=== PATIENT | male | born 1995 | race African-American/Black ===

== ENCOUNTER 2018-11-19 02:00 | Emergency (ER) | payer MEDICAID ==
[2018-11-19] MEDS ORDERED: Ketorolac 60 MG/2 ML SDV IM ONE (02:42)
--- NOTE | 2018-11-19 02:46 | EDM.PDOC ---
ED HPI GENERAL MEDICAL PROBLEM - General Chief Complaint: General Stated Complaint: JAW PAIN Time Seen by Provider: 11/19/18 02:30 Source of Information: Reports: Patient History Limitations: Reports: No Limitations - History of Present Illness INITIAL COMMENTS - FREE TEXT/NARRATIVE: 23-year-old male who had a previous jaw fracture and surgery, had no symptoms until he woke in the middle of the night with intense left jaw pain. He wasn't able to open his mouth, and the pain was intense near the left temporomandibular joint. He tried to move his jaw and pushed inwards on the angle of the jaw and heard a pop, and now the area is swollen. He still has difficulty opening his mouth and talking. No fevers or chills, no sore throat. Onset: Unknown/Unsure Duration: Hour(s): (Woke within the last 2 hours with the pain) Location: Reports: Face jaw Pain Score (Numeric/FACES): 8 - Related Data Allergies Allergy/AdvReac Type Severity Reaction Status Date / Time No Known Allergies Allergy Verified 11/19/18 02:26 Home Meds: Home Meds NK [No Known Home Meds] 11/19/18 [History] Past Medical History Musculoskeletal History: Reports: Fracture, Other (See Below) Other Musculoskeletal History: hand - Past Surgical History HEENT Surgical History: Reports: Tonsillectomy, Other (See Below) Other HEENT Surgeries/Procedures: wisdom teeeth Musculoskeletal Surgical History: Reports: Other (See Below) Other Musculoskeletal Surgeries/Procedures:: jaw surgery was wired. Social & Family History - Tobacco Use Smoking Status *Q: Never Smoker - Caffeine Use Caffeine Use: Reports: Soda - Recreational Drug Use Recreational Drug Use: No ED ROS GENERAL - Review of Systems Review Of Systems: See Below Constitutional: Denies: Fever Respiratory: Denies: Shortness of Breath, Cough Cardiovascular: Denies: Chest Pain GI/Abdominal: Denies: Nausea, Vomiting Skin: Denies: Rash, Erythema ED EXAM, GENERAL - Physical Exam Exam: See Below Exam Limited By: No Limitations General Appearance: Alert, No Apparent Distress (Looks uncomfortable but not distressed) Eye Exam: Bilateral Eye: EOMI Throat/Mouth: Other (Patient does have tenderness and swelling over the left TMJ , and pain with opening of the mouth) Respiratory/Chest: No Respiratory Distress Course - Vital Signs Last Recorded V/S: Last Vital Signs Temp 96.1 F 11/19/18 02:24 Pulse 64 11/19/18 02:24 Resp 12 11/19/18 02:24 BP 144/79 H 11/19/18 02:24 Pulse Ox 98 11/19/18 02:24 - Orders/Labs/Meds Meds: Medications Discontinued Medications Generic Name Dose Route Start Last Admin Trade Name Hanna PRN Reason Stop Dose Admin Ketorolac Tromethamine 60 mg 11/19/18 02:42 11/19/18 02:47 Toradol IM 11/19/18 02:43 60 mg ONETIME ONE Administration - Re-Assessments/Exams Free Text/Narrative Re-Assessment/Exam: 11/19/18 02:46 Patient was given 60 mg of IM Toradol, and a maxillofacial CT was done without contrast. 11/19/18 04:23 CT showed no dislocation. There was a linear lucency in the left mandible likely a vascular channel without history of trauma. Copies of the CT were made for the patient and they were sent to [facility] and he can recheck with ENT later this week if pain is not improving. Departure - Departure Time of Disposition: 04:20 Disposition: Home, Self-Care 01 Condition: Good Clinical Impression: Jaw pain - Discharge Information Instructions: Temporomandibular Joint Syndrome Referrals: PCP,None [Primary Care Provider] - Forms: ED Department Discharge Care Plan Goals: Continue with ibuprofen or naproxen for the next couple days and recheck with your maxillofacial surgeon in the next few days if you do not feel you are improving satisfactorily.
--- NOTE | 2018-11-19 04:15 | CRLCT ---
INDICATION: Left jaw swelling TECHNIQUE: CT maxillofacial without contrast. COMPARISON: None FINDINGS: Facial bones: Plate and screw fixation in the right parasymphyseal region of the mandible. A fracture line in this region is still visualized. No hardware complication. There is also a linear lucency in the left mandibular ramus image 17 series 6 and image 54 series 5. Remainder of the osseous structures are intact. Orbits and globes: Unremarkable. Sinuses: No acute or significant findings. Soft tissues: Unremarkable. IMPRESSION: Subacute fracture of the right parasymphyseal mandible with plate and screw hardware in place. Linear lucency in the left mandibular ramus. Differential considerations include a minimally displaced fracture versus a vascular channel. Correlate with focal pain or tenderness in this region. Please note that all CT scans at this facility use dose modulation, iterative reconstruction, and/or weight-based dosing when appropriate to reduce radiation dose to as low as reasonably achievable. Dictated by Tarsha Gupta MD @ Nov 19 2018 4:01AM Signed by Dr. Tarsha Gupta @ Nov 19 2018 4:13AM
== END 2018-11-19 04:37 | disposition home or self-care (01) ==
LOC: JP.ED 02:00
DX: R68.84 Jaw pain (principal)
CPT/HCPCS: 70486; 96372; 99283; J1885

== ENCOUNTER 2019-02-02 18:16 | Emergency (ER) | payer MEDICAID ==
--- NOTE | 2019-02-02 18:59 | EDM.PDOC ---
ED HPI GENERAL MEDICAL PROBLEM - General Chief Complaint: Lower Extremity Injury/Pain Stated Complaint: TWISTED ANKLE Time Seen by Provider: 02/02/19 18:55 Source of Information: Reports: Patient History Limitations: Reports: No Limitations - History of Present Illness INITIAL COMMENTS - FREE TEXT/NARRATIVE: PT TWISTED LEFT ANKLE AT WORK TODAY.hE HAS A INFECTION ON HIS GREAT TOE WHICH IS OPEN. hE THINKS IT IS FUNGAL BUT THESE LESIONS DO NOT LOOK TYPICAL. Onset: Today, Sudden Duration: Hour(s):, Other (PT TWISTED HIS ANKLE BUT THE TOE INFECTION HAS BEEN GOING ON FOR SEVERAL DAYS. ) Location: Reports: Lower Extremity, Left Left Foot Pain Score (Numeric/FACES): 7 - Related Data Allergies Allergy/AdvReac Type Severity Reaction Status Date / Time No Known Allergies Allergy Verified 02/02/19 18:32 Home Meds: Home Meds NK [No Known Home Meds] 11/19/18 [History] Past Medical History Musculoskeletal History: Reports: Fracture, Other (See Below) Other Musculoskeletal History: hand - Past Surgical History HEENT Surgical History: Reports: Tonsillectomy, Other (See Below) Other HEENT Surgeries/Procedures: wisdom teeeth Musculoskeletal Surgical History: Reports: Other (See Below) Other Musculoskeletal Surgeries/Procedures:: jaw surgery was wired. Social & Family History - Caffeine Use Caffeine Use: Reports: Soda - Recreational Drug Use Recreational Drug Use: No Review of Systems - Review of Systems Review Of Systems: See Below Constitutional: Reports: No Symptoms Eyes: Reports: No Symptoms Ears: Reports: No Symptoms Nose: Reports: No Symptoms Mouth/Throat: Reports: No Symptoms Respiratory: Reports: No Symptoms Cardiovascular: Reports: No Symptoms GI/Abdominal: Reports: No Symptoms Musculoskeletal: Reports: Other (LEFT ANKLE IS MILDLY SWOLLEN . hE HAS A LESION ON HIS LEFT GREAT TOE THAT HAS BEEN THERE FOR AWHILE. ) Neurological: Reports: No Symptoms Psychiatric: Reports: No Symptoms ED EXAM, GENERAL - Physical Exam Exam: See Below Free Text/Narrative:: pt has a lesion on his left great toe that is not healing. He has been treating it like athletes foot. He has also a tender left ankle where he twisted at work today. Exam Limited By: No Limitations General Appearance: Alert Extremities: Other (pt has a mikld swelling of the lateral aspect of the left ankle. He twisted it at work today. He has a lesion on his left great toe which is tender and painful. ) Course - Vital Signs Last Recorded V/S: Last Vital Signs Temp 37.2 C 02/02/19 18:33 Pulse 72 02/02/19 18:33 Resp 16 02/02/19 18:33 BP 136/75 02/02/19 18:33 Pulse Ox 99 02/02/19 18:33 - Orders/Labs/Meds Orders: Active Orders 24 hr Category Date Time Status CULTURE WOUND + SMEAR [RM] Stat Lab 02/02/19 18:59 Results - Re-Assessments/Exams Free Text/Narrative Re-Assessment/Exam: 02/02/19 19:33 his gram stain is positive bacteria probable staph, his albina was also moderately positive from the blister that was opened. Departure - Departure Time of Disposition: 19:35 Disposition: Home, Self-Care 01 Condition: Fair Clinical Impression: Bacterial infection of finger or toe, Fungal infection of skin - Discharge Information Referrals: PCP,None [Primary Care Provider] - Forms: ED Department Discharge Care Plan Goals: cool pack to the ankle, stirup slint for the ankle, limited weight bearing, tylenol and motrin for pain, For the toe infection-- geeta the foot bid dress with lotisone creame, clindomycin 300mg tid, while on the anribiotic use yogurt or probiotic. crutches - My Orders Last 24 Hours: My Active Orders 02/02/19 18:59 CULTURE WOUND + SMEAR [RM] Stat - Assessment/Plan Last 24 Hours: My Active Orders 02/02/19 18:59 CULTURE WOUND + SMEAR [RM] Stat
--- NOTE | 2019-02-02 19:44 | CRLCR ---
INDICATION: twisting injury TECHNIQUE: Left ankle 3 views. COMPARISON: None. FINDINGS: Bones: Alignment is normal. No fractures or bone lesions. Joint spaces: Unremarkable. Soft tissues: Unremarkable. IMPRESSION: Unremarkable left ankle. Dictated by: Joseph Mark MD @ 02/02/2019 19:42:54 (Electronically Signed)
== END 2019-02-02 20:40 | disposition home or self-care (01) ==
LOC: JP.ED 18:16
DX: B36.9 Superficial mycosis, unspecified (principal); L08.9 Local infection of the skin and subcutaneous tissue, unspecified; B96.89 Other specified bacterial agents as the cause of diseases classified elsewhere
CPT/HCPCS: 29515; 73610-LT; 87070; 87077; 87186; 87205; 87220; 99283-25

== ENCOUNTER 2019-09-08 11:51 | Emergency (ER) | payer MEDICAID ==
--- NOTE | 2019-09-08 12:50 | EDM.PDOC ---
ED HPI GENERAL MEDICAL PROBLEM - General Chief Complaint: Respiratory Problem Stated Complaint: CHEST COLD SYMPTOMS Time Seen by Provider: 09/08/19 12:52 Source of Information: Reports: Patient History Limitations: Reports: No Limitations - History of Present Illness INITIAL COMMENTS - FREE TEXT/NARRATIVE: pt has a 3 day history of cough and fever plus body aches. Onset: Other ( Pt has been ill for 3 days. ) Duration: Hour(s): Location: Reports: Chest, Generalized Associated Symptoms: Reports: Cough, Diaphoresis, Fever/Chills, Shortness of Breath - Related Data Allergies Allergy/AdvReac Type Severity Reaction Status Date / Time No Known Allergies Allergy Verified 09/08/19 12:08 Home Meds: Home Meds NK [No Known Home Meds] 11/19/18 [History] Past Medical History Musculoskeletal History: Reports: Fracture, Other (See Below) Other Musculoskeletal History: hand - Past Surgical History HEENT Surgical History: Reports: Myringotomy w Tube(s), Tonsillectomy, Other ( See Below) Other HEENT Surgeries/Procedures: wisdom teeeth Musculoskeletal Surgical History: Reports: Other (See Below) Other Musculoskeletal Surgeries/Procedures:: jaw surgery was wired. Social & Family History - Tobacco Use Smoking Status *Q: Never Smoker - Caffeine Use Caffeine Use: Reports: Soda ED ROS GENERAL - Review of Systems Review Of Systems: See Below Constitutional: Reports: Chills, Malaise HEENT: Reports: No Symptoms Respiratory: Reports: Cough Cardiovascular: Reports: No Symptoms Endocrine: Reports: No Symptoms GI/Abdominal: Reports: No Symptoms Musculoskeletal: Reports: Muscle Pain Skin: Reports: No Symptoms Neurological: Reports: No Symptoms Psychiatric: Reports: No Symptoms ED EXAM, GENERAL - Physical Exam Exam: See Below Free Text/Narrative:: pt arrived with a 3 day history of cough and body aches. He has been going to work. Exam Limited By: No Limitations General Appearance: Alert, Anxious, Mild Distress Ears: Normal TMs Nose: Normal Inspection Throat/Mouth: Normal Inspection Head: Atraumatic Neck: Normal Inspection Respiratory/Chest: No Respiratory Distress Cardiovascular: Regular Rate, Rhythm GI/Abdominal: Soft, Non-Tender (Male) Exam: Deferred Rectal (Males) Exam: Deferred Back Exam: Normal Inspection Extremities: Normal Inspection Neurological: Alert, Oriented, Normal Cognition Course - Vital Signs Last Recorded V/S: Last Vital Signs Temp 37.5 C 09/08/19 12:14 Pulse 82 09/08/19 12:14 Resp 14 09/08/19 12:14 BP 113/69 09/08/19 12:14 Pulse Ox 96 09/08/19 12:14 - Re-Assessments/Exams Free Text/Narrative Re-Assessment/Exam: 09/08/19 12:55 influ b is positive. Departure - Departure Time of Disposition: 12:48 Disposition: Home, Self-Care 01 Condition: Fair Clinical Impression: Influenza B - Discharge Information Referrals: PCP,None [Primary Care Provider] - Forms: ED Department Discharge Care Plan Goals: push fluids, cool mist humidfier, robitussin ac , tylenol and motrin for body aches, no work for the next 2 days. Sepsis Event Note - Evaluation Sepsis Screening Result: No Definite Risk - Focused Exam Vital Signs: Vital Signs Temp Pulse Resp BP Pulse Ox 09/08/19 12:14 37.5 C 82 14 113/69 96 Date Exam was Performed: 09/08/19 Time Exam was Performed: 12:52
== END 2019-09-08 13:01 | disposition home or self-care (01) ==
LOC: JP.ED 11:51
DX: J10.1 Influenza due to other identified influenza virus with other respiratory manifestations (principal)
CPT/HCPCS: 87804; 87804-59; 99283